=== PATIENT | female | born 1990 | race Caucasian/White ===

== ENCOUNTER 2016-10-26 05:42 | Emergency (ER) | payer OTHER ==
--- NOTE | 2016-10-26 07:21 | ED CLINICAL REPORT ---
Clinical Report - Physicians/Mid Levels [facility] [address] [place] [address] 10/26/2016 5:44 Patient: JANETH FRIAS Time Seen: 06:17; initial patient contact. Arrived- By private vehicle. Historian- patient. HISTORY OF PRESENT ILLNESS Chief Complaint: HEADACHE. Is still present. This started yesterday. It was gradual in onset. Onset during light activity. Located in the region of the right eye and left eye and occipital region and has had neck pain. At its maximum, severity described as moderate. When seen in the E.D., severity described as moderate. No preceding symptoms, blurred vision, photophobia, associated nausea or numbness. No weakness or vomiting. Similar symptoms previously: Several times. Recent medical care: Not recently seen/assessed. REVIEW OF SYSTEMS No fever or sinus pressure. She has had muscle aches. All systems otherwise negative, except as recorded above. PAST HISTORY Anxiety Reaction. Migraine Headache. SURGERIES: Bartholin cyst removal. SOCIAL HISTORY Never smoker. Occasional alcohol use. No drug use. ADDITIONAL NOTES The nursing notes have been reviewed. PHYSICAL EXAM Vital Signs: 10/26/2016 05:50 BP: 117/70. HR: 79. RR: 16. O2 saturation: 98%. Temp: 97.5 F. Pain level now: 8/10. Have been reviewed as normal. Appearance: Alert. No acute distress. Eyes: Pupils equal, round and reactive to light. Eyes normal inspection. Neck: Mild acute decrease in ROM secondary to pain. Moderate muscle spasm of the right and left posterior neck. Neck supple. Moderate soft tissue tenderness in the right upper, mid and lower neck area and left upper, mid and lower neck area. No meningeal signs. No vertebral tenderness. Neuro: Oriented X 3. Alert. Mood/affect normal. Speech normal. Cranial nerves normal (as tested). PROGRESS AND PROCEDURES Disposition: Discharged home in good and improved condition. Condition: good. CLINICAL IMPRESSION Episodic tension-type headache resistant to treatment. INSTRUCTIONS Your Current Medications: CONTINUE TAKING THE FOLLOWING MEDICATIONS: SUMAtriptan Succinate Oral. Zoloft Oral. Prescription Medications: Baclofen 10 mg: take 1 orally every 8 hours. Dispense thirty (30). No refills. Follow-up: Follow up with your doctor in about three days. Call for an appointment. Screening today revealed the patient's blood pressure to be in the normal range. (Electronically signed by Rogers Baxter Dr. 10/26/2016 7:49)
--- NOTE | 2016-10-26 07:21 | ED ORDER SUMMARY ---
..... Patient: JANETH FRIAS OrderSheet [facility] VisitID: [id number] [address] [place] [address] 26y, F Registration Date/Time: 10/26/2016 ORDER SHEET Weight: 63.5 kg (stated) Allergies: Penicillin GENERAL ORDERS: MEDICATION ORDERS: IV FLUIDS: Diazepam IV 5 mg (HIGH ALERT MEDICATION, NOW) (06:28 10/26/2016 Marya Whiting) (6:46 DDavis R.N.) Toradol IV 30 mg (NOW) (06:28 10/26/2016 Marya Whiting) (6:46 DDbetty R.N.) Zofran IV 4 mg (NOW) (06:10/26/2016 Marya Whiting) (6:47 DDbetty R.N.) ORDER SHEET NOTES: [Electronically signed by Venita Ny R.N. (07:37 10/26/2016)] [Electronically signed by Rogers Baxter Dr. (07:49 10/26/2016)] [Electronically locked/signed by Venita Ny R.N. (07:37 10/26/2016)]
--- NOTE | 2016-10-26 07:21 | ED NURSING NOTES ---
Clinical Report - Nurses [facility] [address] [address] [place] [address] 10/26/2016 5:44 [id number] Triage time 05:51. Acuity: LEVEL 3. Chief Complaint: MIGRAINE HEADACHE. Alert. CAROLYN COMA SCORE: Carolyn Coma Scale: 15- eyes open spontaneously (4); best verbal response- oriented x 4 (5); best motor response- obeys commands (6). --05:54 Thong Briseno R.N. 05:50 10/26/16. BP: 117/70. HR: 79. RR: 16 (regular and unlabored). O2 saturation: 98%. Temp: 97.5 F (oral). Pain level now: 8/10. --05:54 Thong Briseno R.N. Weight: 63.5 kg stated. Height/Length: 66 inches Per Patient. BMI: 22.6. --05:51 Thong Briseno R.N. Medications SUMAtriptan Succinate Oral. --05:51 Thong Briseno R.N. Zoloft Oral. --05:51 Thong Briseno R.N. Allergies Penicillin. --05:52 Thong Briseno R.N. History Arrived by private vehicle. Historian: patient. Accompanied by family. This started yesterday. No nausea. SOCIAL HX: Never smoker. Occasional alcohol use. No drug use. ( denies HI/SI, states feeling safe at home). ABUSE ASSESSMENT: No report of abuse. SELF HARM ASSESSMENT: A self harm assessment was performed. The patient answered "no" to the question "Do you have thoughts of harming or killing yourself?" and "Are you here because you tried to hurt yourself?". FALL RISK ASSESSMENT: Fall risk assessment completed. No fall risk identified. NUTRITIONAL RISK ASSESSMENT: The nutritional risk assessment revealed no deficiencies. FUNCTIONAL ASSESSMENT: Functional assessment: no impairments noted. LEARNING NEEDS ASSESSMENT: The learning needs assessment revealed no barriers. SKIN INTEGRITY ASSESSMENT: Skin integrity risk assessment completed. No skin integrity risk identified. --05:54 Thong Briseno R.N. PAST MEDICAL HX: Last normal menstrual period- . --05:56 Thong Briseno R.N. PROBLEMS: Anxiety Reaction. Migraine Headache. --05:52 Thong Briseno R.N. ADDITIONAL SURGERIES: Bartholin cyst removal. --05:52 Thong Briseno R.N. Interventions ID band on patient. To treatment room. --05:54 Thong Briseno R.N. PHYSICAL ASSESSMENT Ambulatory to room. ( see triage assessment. patient states that this headache feels like one of her migraines.). GENERAL / NEURO / PSYCH: Alert. Oriented X 4. Appears in pain. Does not appear anxious or in distress. Speech within normal limits. RESPIRATORY: Respirations not labored. GI / : Abdomen soft and nontender. No nausea noted. SKIN: Skin is warm and dry. --05:54 Thong Briseno R.N. NURSING PROGRESS NOTES Head of bed elevated. Two patient identifiers checked. Call light placed in reach. Side rails up. Bed placed in lowest position. Brakes of bed on. Patient ready for evaluation- chart flagged. Patient waiting for evaluation. --05:55 Thong Briseno R.N. 05:58 10/26/2016 Site #1 started via IV in the left antecubital space with an 20g angiocath, with aseptic technique and good blood return; one attempt. Blood drawn: rainbow set. Labeled in the presence of the patient and sent to the lab. Saline lock flushed with 10 mL saline. --05:58 Ivanna Goodman R.N. 06:39 10/26/2016 Zofran (Ondansetron HCl) IVP 4 mg given over 1 minute(s) via site #1. Allergies verified and confirmed 5 rights. IV patency established. IV site checked: no pain, redness, or swelling. IV flushed thoroughly pre- and post-medication administration. IVP given by RN. --06:47 Thong Briseno R.N. 06:41 10/26/2016 Toradol IVP 30 mg given over 2 minute(s) via site #1. Allergies verified and confirmed 5 rights. IV patency established. IV site checked: no pain, redness, or swelling. IV flushed thoroughly pre- and post-medication administration. IVP given by RN. --06:46 Thong Briseno R.N. 06:43 10/26/2016 Diazepam (Diazepam) IVP 5 mg given over 2 minute(s) via site #1. Allergies verified, confirmed 5 rights and sedative warning given to the patient and patient's live in housekeeper nanny. IV patency established. IV site checked: no pain, redness, or swelling. IV flushed thoroughly pre- and post-medication administration. IVP given by RN. --06:46 Thong Briseno R.N. Urine test negative. pest control specialist check passed. ( Bedside POC test negative). --06:47 Thong Briseno R.N. ( Report given to Venita Gastelum RN). --07:07 Thong Briseno R.N. DISPOSITION / DISCHARGE Departure time: 729. Condition at departure: improved. No learning barriers present. Discharge instructions provided and reviewed with the patient. Reviewed medication(s) information. Prescription(s) given to the patient. Reviewed referral to family practice for followup (in 3 days). Patient verbalized understanding. Written instructions provided. The patient was discharged home and accompanied by live in housekeeper nanny. She left the Emergency Department ambulatory. --07:36 Venita Ny R.N. 07:30 10/26/16. BP: 115/67. HR: 74. RR: 18. O2 saturation: 100%. Pain level now: 07/11. --07:36 Venita Ny R.N. Locked/Released at 10/26/2016 7:37 by Venita Ny R.N.
--- NOTE | 2016-10-26 07:21 | ED ORDER SUMMARY ---
..... Patient: JANETH FRIAS OrderSheet [facility] VisitID: [id number] [address] [place] [address] 26y, F Registration Date/Time: 10/26/2016 ORDER SHEET Weight: 63.5 kg (stated) Allergies: Penicillin GENERAL ORDERS: MEDICATION ORDERS: IV FLUIDS: Diazepam IV 5 mg (HIGH ALERT MEDICATION, NOW) (06:28 10/26/2016 Marya Whiting) (6:46 DDavis R.N.) Toradol IV 30 mg (NOW) (06:28 10/26/2016 Marya Whiting) (6:46 DDbetty R.N.) Zofran IV 4 mg (NOW) (06:10/26/2016 Marya Whiting) (6:47 DDbetty R.N.) ORDER SHEET NOTES: [Electronically signed by Venita Ny R.N. (07:37 10/26/2016)] [Electronically signed by Rogers Baxter Dr. (07:49 10/26/2016)] [Electronically locked/signed by Venita Ny R.N. (07:37 10/26/2016)]
--- NOTE | 2016-10-26 07:21 | ED CLINICAL REPORT ---
Clinical Report - Physicians/Mid Levels [facility] [address] [place] [address] 10/26/2016 5:44 Patient: JANETH FRIAS Time Seen: 06:17; initial patient contact. Arrived- By private vehicle. Historian- patient. HISTORY OF PRESENT ILLNESS Chief Complaint: HEADACHE. Is still present. This started yesterday. It was gradual in onset. Onset during light activity. Located in the region of the right eye and left eye and occipital region and has had neck pain. At its maximum, severity described as moderate. When seen in the E.D., severity described as moderate. No preceding symptoms, blurred vision, photophobia, associated nausea or numbness. No weakness or vomiting. Similar symptoms previously: Several times. Recent medical care: Not recently seen/assessed. REVIEW OF SYSTEMS No fever or sinus pressure. She has had muscle aches. All systems otherwise negative, except as recorded above. PAST HISTORY Anxiety Reaction. Migraine Headache. SURGERIES: Bartholin cyst removal. SOCIAL HISTORY Never smoker. Occasional alcohol use. No drug use. ADDITIONAL NOTES The nursing notes have been reviewed. PHYSICAL EXAM Vital Signs: 10/26/2016 05:50 BP: 117/70. HR: 79. RR: 16. O2 saturation: 98%. Temp: 97.5 F. Pain level now: 8/10. Have been reviewed as normal. Appearance: Alert. No acute distress. Eyes: Pupils equal, round and reactive to light. Eyes normal inspection. Neck: Mild acute decrease in ROM secondary to pain. Moderate muscle spasm of the right and left posterior neck. Neck supple. Moderate soft tissue tenderness in the right upper, mid and lower neck area and left upper, mid and lower neck area. No meningeal signs. No vertebral tenderness. Neuro: Oriented X 3. Alert. Mood/affect normal. Speech normal. Cranial nerves normal (as tested). PROGRESS AND PROCEDURES Disposition: Discharged home in good and improved condition. Condition: good. CLINICAL IMPRESSION Episodic tension-type headache resistant to treatment. INSTRUCTIONS Your Current Medications: CONTINUE TAKING THE FOLLOWING MEDICATIONS: SUMAtriptan Succinate Oral. Zoloft Oral. Prescription Medications: Baclofen 10 mg: take 1 orally every 8 hours. Dispense thirty (30). No refills. Follow-up: Follow up with your doctor in about three days. Call for an appointment. Screening today revealed the patient's blood pressure to be in the normal range. (Electronically signed by Rogers Baxter Dr. 10/26/2016 7:49)
--- NOTE | 2016-10-26 07:21 | ED NURSING NOTES ---
Clinical Report - Nurses [facility] [address] [place] [address] 10/26/2016 5:44 [id number] Triage time 05:51. Acuity: LEVEL 3. Chief Complaint: MIGRAINE HEADACHE. Alert. CAROLYN COMA SCORE: Carolyn Coma Scale: 15- eyes open spontaneously (4); best verbal response- oriented x 4 (5); best motor response- obeys commands (6). --05:54 Thong Briseno R.N. 05:50 10/26/16. BP: 117/70. HR: 79. RR: 16 (regular and unlabored). O2 saturation: 98%. Temp: 97.5 F (oral). Pain level now: 8/10. --05:54 Thong Briseno R.N. Weight: 63.5 kg stated. Height/Length: 66 inches Per Patient. BMI: 22.6. --05:51 Thong Briseno R.N. Medications SUMAtriptan Succinate Oral. --05:51 Thong Briseno R.N. Zoloft Oral. --05:51 Thong Briseno R.N. Allergies Penicillin. --05:52 Thong Briseno R.N. History Arrived by private vehicle. Historian: patient. Accompanied by family. This started yesterday. No nausea. SOCIAL HX: Never smoker. Occasional alcohol use. No drug use. ( denies HI/SI, states feeling safe at home). ABUSE ASSESSMENT: No report of abuse. SELF HARM ASSESSMENT: A self harm assessment was performed. The patient answered "no" to the question "Do you have thoughts of harming or killing yourself?" and "Are you here because you tried to hurt yourself?". FALL RISK ASSESSMENT: Fall risk assessment completed. No fall risk identified. NUTRITIONAL RISK ASSESSMENT: The nutritional risk assessment revealed no deficiencies. FUNCTIONAL ASSESSMENT: Functional assessment: no impairments noted. LEARNING NEEDS ASSESSMENT: The learning needs assessment revealed no barriers. SKIN INTEGRITY ASSESSMENT: Skin integrity risk assessment completed. No skin integrity risk identified. --05:54 Thong Briseno R.N. PAST MEDICAL HX: Last normal menstrual period- . --05:56 Thong Brsieno R.N. PROBLEMS: Anxiety Reaction. Migraine Headache. --05:52 Thong Briseno R.N. ADDITIONAL SURGERIES: Bartholin cyst removal. --05:52 Thong Briseno R.N. Interventions ID band on patient. To treatment room. --05:54 Thong Briseno R.N. PHYSICAL ASSESSMENT Ambulatory to room. ( see triage assessment. patient states that this headache feels like one of her migraines.). GENERAL / NEURO / PSYCH: Alert. Oriented X 4. Appears in pain. Does not appear anxious or in distress. Speech within normal limits. RESPIRATORY: Respirations not labored. GI / : Abdomen soft and nontender. No nausea noted. SKIN: Skin is warm and dry. --05:54 Thong Briseno R.N. NURSING PROGRESS NOTES Head of bed elevated. Two patient identifiers checked. Call light placed in reach. Side rails up. Bed placed in lowest position. Brakes of bed on. Patient ready for evaluation- chart flagged. Patient waiting for evaluation. --05:55 Thong Briseno R.N. 05:58 10/26/2016 Site #1 started via IV in the left antecubital space with an 20g angiocath, with aseptic technique and good blood return; one attempt. Blood drawn: rainbow set. Labeled in the presence of the patient and sent to the lab. Saline lock flushed with 10 mL saline. --05:58 Ivanna Goodman R.N. 06:39 10/26/2016 Zofran (Ondansetron HCl) IVP 4 mg given over 1 minute(s) via site #1. Allergies verified and confirmed 5 rights. IV patency established. IV site checked: no pain, redness, or swelling. IV flushed thoroughly pre- and post-medication administration. IVP given by RN. --06:47 Thong Briseno R.N. 06:41 10/26/2016 Toradol IVP 30 mg given over 2 minute(s) via site #1. Allergies verified and confirmed 5 rights. IV patency established. IV site checked: no pain, redness, or swelling. IV flushed thoroughly pre- and post-medication administration. IVP given by RN. --06:46 Thong Briseno R.N. 06:43 10/26/2016 Diazepam (Diazepam) IVP 5 mg given over 2 minute(s) via site #1. Allergies verified, confirmed 5 rights and sedative warning given to the patient and patient's insurance account executive. IV patency established. IV site checked: no pain, redness, or swelling. IV flushed thoroughly pre- and post-medication administration. IVP given by RN. --06:46 Thong Briseno R.N. Urine test negative. infection control practitioner check passed. ( Bedside POC test negative). --06:47 Thong Briseno R.N. ( Report given to Venita Gastelum RN). --07:07 Thong Briseno R.N. DISPOSITION / DISCHARGE Departure time: 729. Condition at departure: improved. No learning barriers present. Discharge instructions provided and reviewed with the patient. Reviewed medication(s) information. Prescription(s) given to the patient. Reviewed referral to family practice for followup (in 3 days). Patient verbalized understanding. Written instructions provided. The patient was discharged home and accompanied by insurance account executive. She left the Emergency Department ambulatory. --07:36 Venita Ny R.N. 07:30 10/26/16. BP: 115/67. HR: 74. RR: 18. O2 saturation: 100%. Pain level now: 07/11. --07:36 Venita Ny R.N. Locked/Released at 10/26/2016 7:37 by Venita Ny R.N.
--- NOTE | 2016-10-26 07:49 | ED MED RECONCILIATION SUMMARY ---
Patient: JANETH FRIAS Medication Reconciliation Report [facility] VisitID: [id number] [address] [place] [address] 26y, F Registration Date/Time: 10/26/2016 Weight: 63.5 kg Height/Length: 66 in. BMI: 22.6 ALLERGIES: Penicillin The patient's Home Medications are listed below: CONTINUE TAKING THE FOLLOWING MEDICATIONS: SUMAtriptan Succinate Oral Zoloft Oral The source(s) of the original Home Medication information: Not obtained. The following Medications were given to the patient in the Emergency Department: Diazepam [IVP] IVP 5 mg, administered: 10/26/2016 6:43:00 AM Toradol [IVP] IVP 30 mg, administered: 10/26/2016 6:41:00 AM Zofran [IVP] IVP 4 mg, administered: 10/26/2016 6:39:00 AM The following Medications were prescribed to the patient: Baclofen 10 mg: take 1 orally every 8 hours. Dispense thirty (30). No refills. -- Rogers Baxter Dr.
--- NOTE | 2016-10-26 07:49 | ED MAR SUMMARY ---
..... Medication Administration Record [facility] [address] [place] [address] Patient: JANETH FRIAS Visit ID: [id number] 26y, F Weight: 63.5 kg Height/Length: 66 in BMI: 22.6 ALLERGIES: Penicillin Given 06:39 10/26/2016 Thong Briseno R.N. Medication Administered: ZOFRAN [IVP] (ONDANSETRON HCL), Dose: 4 mg IVP over 1 minute(s), Site: #1 left AC. Medication Ordered: Zofran IV 4 mg (NOW). Given 06:41 10/26/2016 Thong Briseno R.N. Medication Administered: TORADOL [IVP], Dose: 30 mg IVP over 2 minute(s), Site: #1 left AC. Medication Ordered: Toradol IV 30 mg (NOW). Given 06:43 10/26/2016 Thong Briseno R.N. Medication Administered: DIAZEPAM [IVP] (DIAZEPAM), Dose: 5 mg IVP over 2 minute(s), Site: #1 left AC. Medication Ordered: Diazepam IV 5 mg (HIGH ALERT MEDICATION, NOW).
--- NOTE | 2016-10-26 07:49 | ED DISCHARGE INSTRUCTIONS ---
Patient: JANETH FRIAS General Instructions [facility] VisitID: [id number] [place] [address] 26y, F Registration Date/Time: 10/26/2016 Episodic tension-type headache resistant to treatment. INSTRUCTIONS Your Current Medications: CONTINUE TAKING THE FOLLOWING MEDICATIONS: SUMAtriptan Succinate Oral. Zoloft Oral. Prescription Medications: Baclofen 10 mg: take 1 orally every 8 hours. Dispense thirty (30). No refills. Follow-up: Follow up with your doctor in about three days. Call for an appointment. Screening today revealed the patient's blood pressure to be in the normal range. ADDITIONAL INFORMATION Tension Headache Muscle Tension Headache (also called "stress headache") is a very common cause of head pain. Under stress, some people tense the muscles of their shoulder, neck and scalp without knowing it. If this lasts long enough, a headache can occur. These headaches can be very painful and last for hours or even days. Home Care: If you were given pain medicine for this headache, do not drive yourself home. Arrange for a ride, instead. When you get home, try to sleep. You should feel much better when you wake up. Heat to the back of your neck may relieve neck spasm. Drink only clear liquids or eat a very light diet to avoid nausea/vomiting until symptoms improve. Preventing Future Headaches Identify the sources of stress in your life. These may not be obvious! Learn new ways to handle your stress, such as regular exercise, biofeedback, self-hypnosis and meditation. For more information about this, consult your doctor or go to a local bookstore and review the many books and tapes on this subject. At the first sign of a tension headache, take time out if possible. Remove yourself from the stressful situation, find a quiet comfortable place to sit or lie down and let yourself relax. Heat and deep massage of the tight areas in the neck and shoulders may help reduce muscle spasm. Medicine, such as ibuprofen (Advil or Motrin) or a prescribed muscle relaxant may be helpful at this point. Follow Up with your doctor if the headache is not better within the next 24 hours. If you have frequent headaches you should discuss a treatment plan with your primary care doctor. Ask if you can have medicine to take at home the next time you get a bad headache. This may avoid the need for a visit to the emergency department in the future. Poorly controlled chronic headaches may require a referral to a neurologist (headache specialist). Get Prompt Medical Attention if any of the following occur: Worsening of your head pain or no improvement within 24 hours Repeated vomiting (unable to keep liquids down) Fever of 100.4F (38C) or higher, or as directed by your healthcare provider Stiff neck Extreme drowsiness, confusion or fainting Dizziness, vertigo (dizziness with spinning sensation) Weakness of an arm or leg or one side of the face Difficulty with speech or vision You have been given the following additional information: Headache, Tension (Electronically signed by Rogers Baxter Dr. 10/26/2016 7:49)
--- NOTE | 2016-10-26 07:49 | ED MAR SUMMARY ---
..... Medication Administration Record [facility] [address] [place] [address] Patient: JANETH FRIAS Visit ID: [id number] 26y, F Weight: 63.5 kg Height/Length: 66 in BMI: 22.6 ALLERGIES: Penicillin Given 06:39 10/26/2016 Thong Briseno R.N. Medication Administered: ZOFRAN [IVP] (ONDANSETRON HCL), Dose: 4 mg IVP over 1 minute(s), Site: #1 left AC. Medication Ordered: Zofran IV 4 mg (NOW). Given 06:41 10/26/2016 Thong Briseno R.N. Medication Administered: TORADOL [IVP], Dose: 30 mg IVP over 2 minute(s), Site: #1 left AC. Medication Ordered: Toradol IV 30 mg (NOW). Given 06:43 10/26/2016 Thong Briseno R.N. Medication Administered: DIAZEPAM [IVP] (DIAZEPAM), Dose: 5 mg IVP over 2 minute(s), Site: #1 left AC. Medication Ordered: Diazepam IV 5 mg (HIGH ALERT MEDICATION, NOW).
--- NOTE | 2016-10-26 07:49 | ED MED RECONCILIATION SUMMARY ---
Patient: JANETH FRIAS Medication Reconciliation Report [facility] VisitID: [id number] [address] [place] [address] 26y, F Registration Date/Time: 10/26/2016 Weight: 63.5 kg Height/Length: 66 in. BMI: 22.6 ALLERGIES: Penicillin The patient's Home Medications are listed below: CONTINUE TAKING THE FOLLOWING MEDICATIONS: SUMAtriptan Succinate Oral Zoloft Oral The source(s) of the original Home Medication information: Not obtained. The following Medications were given to the patient in the Emergency Department: Diazepam [IVP] IVP 5 mg, administered: 10/26/2016 6:43:00 AM Toradol [IVP] IVP 30 mg, administered: 10/26/2016 6:41:00 AM Zofran [IVP] IVP 4 mg, administered: 10/26/2016 6:39:00 AM The following Medications were prescribed to the patient: Baclofen 10 mg: take 1 orally every 8 hours. Dispense thirty (30). No refills. -- Rogers Baxter Dr.
== END 2016-10-26 07:30 | disposition home or self-care (01) ==
LOC: ED SRH 05:42
DX: G44.211 Episodic tension-type headache, intractable (principal)